=== PATIENT | female | born 1945 | race Two or more races ===

== ENCOUNTER 2020-02-11 22:47 | Emergency (ER) | payer MEDICARE ==
[~2020-02-11] VITALS: Ht 154.9 cm; Wt 87.0 kg
[2020-02-12 00:59] VITALS: BP 160/88
== END 2020-02-12 01:01 | disposition home or self-care (01) ==
LOC: ER 22:47
DX: L22 Diaper dermatitis (principal); F03.90 Unspecified dementia, unspecified severity, without behavioral disturbance, psychotic disturbance, mood disturbance, and anxiety; E11.9 Type 2 diabetes mellitus without complications; E78.00 Pure hypercholesterolemia, unspecified; I10 Essential (primary) hypertension
CPT/HCPCS: 99282; 99283